=== PATIENT | male | born 1950 | race Caucasian/White ===

== ENCOUNTER 2017-05-31 14:02 | Observation (INO) | payer MEDICARE, OTHER ==
[~2017-05-31] VITALS: Ht 188 cm; Wt 108.9 kg
[~2017-05-31 14:02] MED LIST: DILT-9 PO; DULO20CA PO; GABA-497 PO; HYDR-4663 PO; LISI40TA PO; MELATAB2 PO; METF850T PO; MOME200A INH; TIOTCAP INH
[2017-05-31 14:46] LABS: Basophils # (auto) 0.1 uL; Monocytes # (auto) 1.1 uL; Nucleated Red Blood Cells % 0.1 %
[2017-05-31 14:48] LABS: Basophils % (auto) 0.7 % (0.0-2.0); Eosinophils # (auto) 0.9 uL; Eosinophils % (auto) 9.3 % (0.0-7.0); Hematocrit 55.8 % (41.0-53.0); Lymphocytes # (auto) 2.4 uL; Lymphocytes % (auto) 24.6 % (10.0-50.0); Mean Corpuscular Volume 91.2 fL (80.0-100.0); Mean Platelet Volume 7.9 fL (6.9-10.8); Monocytes % (auto) 10.7 % (0.0-12.0); Neutrophils # (auto) 5.4 uL; Neutrophils % (auto) 54.7 % (37.0-80.0); Platelet Count (auto) 200 10^3/uL (140-450); Red Cell Distribution Width 13.8 % (11.8-14.3); White Blood Cell 9.9 10^3/uL (4.4-10.8)
[2017-05-31 14:59] LABS: Albumin 4.1 g/dL (3.4-5.0); BUN/Creatinine Ratio 9.4; Calcium 7.8 mg/dL (8.5-10.1); Potassium 5.2 mmol/L (3.5-5.1)
[2017-05-31 15:02] LABS: Bilirubin, Total 0.7 mg/dL (0.2-1.0); Total Protein 8.3 g/dL (6.4-8.2)
[2017-05-31 15:04] LABS: Acetaminophen < 2.0 ug/mL (10-30); Salicylate 2.3 mg/dL (2.8-20.0)
[2017-05-31] MEDS ORDERED: SODIUM CHLORIDE 0.9% 1,000 ML IVB ONE (17:23)
[2017-05-31 18:31] LABS: INR 1.05 (0.9-1.15); Prothrombin Time 11.4 sec (9.37-12.3)
[2017-05-31 19:02] LABS: Magnesium 2.5 mg/dL (1.6-2.6)
[2017-05-31] MEDS ORDERED: SODIUM CHLORIDE 0.9% 1,000 ML IV ONE (20:00)
[2017-05-31] MEDS ORDERED: THIAMINE INJ 100 MG, MULTIPLE VITAMIN 10 ML, FOLIC ACID 1 MG, MAGNESIUM SULF SDV 50% 8 ... IV STA ×5 (20:32)
[2017-05-31 21:07] LABS: Urine RBC None Seen /hpf (0 - 3)
[2017-05-31 21:27] LABS: Urine Bilirubin Negative (Negative); Urine Blood Negative /uL (Negative); Urine Color Yellow (Yellow); Urine Glucose Normal (Normal); Urine Ketone Negative (Negative); Urine Mucus FEW (None Seen); Urine Nitrite Negative (Negative); Urine Urobilinogen Normal (Negative)
[2017-05-31] MEDS ORDERED: LORazepam 2MG/ML-1ML VIAL IV ONE (22:15)
[2017-06-01] MEDS ORDERED: SODIUM CHLORIDE 0.9% 1,000 ML IV ONE
[2017-06-01] MEDS ORDERED: LORazepam 2MG/ML-1ML VIAL IV ONE
[2017-06-01 07:00] LABS: Basophils # (auto) 0.1 uL; Basophils % (auto) 1.1 % (0.0-2.0); Eosinophils # (auto) 0.4 uL; Eosinophils % (auto) 4.4 % (0.0-7.0); Hemoglobin 16.9 g/dL (13.5-17.5); Lymphocytes # (auto) 1.3 uL; Lymphocytes % (auto) 15.9 % (10.0-50.0); Mean Corpuscular Hemoglobin 30.9 pg (28.0-32.0); Mean Corpuscular Hgb Conc. 33.9 g/dL (32.0-36.0); Mean Corpuscular Volume 91.2 fL (80.0-100.0); Mean Platelet Volume 8.2 fL (6.9-10.8); Monocytes # (auto) 0.9 uL; Neutrophils # (auto) 5.6 uL; Neutrophils % (auto) 67.6 % (37.0-80.0); Platelet Count (auto) 178 10^3/uL (140-450); Red Cell Distribution Width 13.9 % (11.8-14.3); White Blood Cell 8.4 10^3/uL (4.4-10.8)
[2017-06-01 07:27] LABS: BUN/Creatinine Ratio 10.9; Calcium 7.6 mg/dL (8.5-10.1); Magnesium 2.7 mg/dL (1.6-2.6); Potassium 4.1 mmol/L (3.5-5.1)
[2017-06-01] MEDS ORDERED: cloNIDine HCL 0.1 MG TAB PO ONE (07:45)
[2017-06-01] MEDS ORDERED: LORazepam 0.5 MG TAB PO ONE (07:45)
[2017-06-01 11:40] VITALS: BP 185/110
[2017-06-01] MEDS ORDERED: THIAMINE INJ 100 MG, MULTIPLE VITAMIN 10 ML, FOLIC ACID 1 MG, MAGNESIUM SULF SDV 50% 8 ... IV SCH ×5 (12:00)
== END 2017-06-01 13:35 | disposition home or self-care (01) | DRG 880 ==
LOC: EDBD 14:02 → ER 14:02 → OVERFLOW 17:25 → ER 06-01 13:28
PROVIDERS: ADMIT Family Medicine; ATTEND Family Medicine
DX: R45.851 Suicidal ideations (principal); J44.9 Chronic obstructive pulmonary disease, unspecified; I10 Essential (primary) hypertension; F32.9 Major depressive disorder, single episode, unspecified; F10.129 Alcohol abuse with intoxication, unspecified; F41.9 Anxiety disorder, unspecified; F17.210 Nicotine dependence, cigarettes, uncomplicated; Z81.8 Family history of other mental and behavioral disorders
CPT/HCPCS: 36415; 71010; 80048; 80053; 80307; 80320; 80329; 81001; 82962; 83735; 85025; 85610; 85730; 93005; 96361; 96365; 96366; 96376; 99285; G0378; J2060; J3411; J3475; J7030

== ENCOUNTER 2020-02-03 13:56 | Emergency (ER) | payer MEDICARE, OTHER ==
[~2020-02-03] VITALS: Ht 182.9 cm; Wt 102.5 kg
[~2020-02-03 13:56] MED LIST changes: -DILT-9 PO; +DILT240C35 PO; -GABA-497 PO; +GABA300C10 PO; -HYDR-4663 PO; +HYDR-4833 PO; -LISI40TA PO; +LISI40TA11 PO
[2020-02-03 14:54] VITALS: BP 154/80
== END 2020-02-03 17:05 | disposition home or self-care (01) ==
LOC: ER 13:56
DX: M79.641 Pain in right hand (principal); K08.89 Other specified disorders of teeth and supporting structures; J44.9 Chronic obstructive pulmonary disease, unspecified; I10 Essential (primary) hypertension
CPT/HCPCS: 73110; 82962; 93971